=== PATIENT | female | born 1990 | race Caucasian/White ===

== ENCOUNTER 2018-04-07 16:28 | Emergency (ER) | payer OTHER ==
[~2018-04-07] VITALS: Ht 157.5 cm; Wt 45.4 kg
[~2018-04-07 16:28] MED LIST: ACYCLOVIR 800800 MG PO; ALPRAZOLAM 0.0.25 MG PO; AMBIEN 10 MG TA10 MG PO; AMBIEN 5 MG TABL5 M1 PO; ANASPAZ0.125 MG SL; CIPROFLOXACIN500 M1 PO; CIPROFLOXACIN500 M3 PO; COLACE1 EAC1 PO; COLACE100 MG PO; COUMADIN 5 MG TA5 M1 PO; DIFLUCAN150 MG PO; DOXYCYCLINE 10100 MG PO; ENOXAPARIN30 MG/0.3 SUBQ; FLAGYL500 MG PO; FLUCONAZOLE 10100 MG PO; HYDROCODON-ACE1 EAC7 PO; HYDROCODONE-AP1 EAC6 PO; HYDROCORTISONE30 G9; LIALDA1.2 GM PO; LORAZEPAM 0.50.5 MG PO; NOHOMEMEDICATIONS; NORCO 5-325 TA1 EACH; NORCO 5-325 TA1 EACH PO; ONDANSETRON HCL4 M3 PO; OXYCODONE HCL 55 MG PO; PREDNISONE 10 M10 M1 PO; PREDNISONE 20 M20 MG PO; REMERON15 MG PO; TAMSULOSIN HCL0.4 M1 PO; lovenox SUBQ
[2018-04-07 17:08] LABS: URINE BILIRUBIN NEGATIVE (Negative); URINE BLOOD NEGATIVE (Negative); URINE CLARITY SL CLOUDY; URINE COLOR YELLOW; URINE GLUCOSE-RANDOM* NEGATIVE (Negative); URINE KETONES NEGATIVE (Negative); URINE NITRITE-REFLEX NEGATIVE (Negative); URINE PROTEIN (DIPSTICK) TRACE (Negative); URINE SPECIFIC GRAVITY >= 1.030 (1.005-1.035); URINE UROBILINOGEN 0.2 E.U./dl (0.2-1.0)
[2018-04-07 17:08] LABS: HEMATOCRIT 27.2 % (37.0-47.0); HEMOGLOBIN 7.8 gm/dL (12.0-15.0); MCH 17.3 pg (26.0-34.0); MCHC 28.6 g/dL (28.0-37.0); MCV 60.6 fL (80.0-100.0); PLATELET COUNT 248 thou/uL (150-400); RBC 4.48 mil/uL (4.20-5.00); RDW 20.2 % (10.5-14.5); WBC 10.1 thou/uL (4.0-11.0)
[2018-04-07 17:12] LABS: CREATININE 0.7 mg/dL (0.6-1.0); POTASSIUM 3.8 mmol/L (3.5-5.1)
[2018-04-07 17:17] LABS: URINE LEUKOCYTES-REFLEX 1+ (Negative)
[2018-04-07 17:18] LABS: ALBUMIN 4.1 g/dL (3.4-5.0); TOTAL BILIRUBIN 0.9 mg/dL (<0.1-1.0); TOTAL PROTEIN 7.9 g/dL (6.4-8.2)
[2018-04-07 17:20] LABS: AMORPHOUS URATES Many /LPF (None Seen); BACTERIA-REFLEX 1-9 Few /HPF (None Seen); FINE GRANULAR CASTS 0-3 Few /LPF (None Seen); MUCUS None Seen strn/LPF (None Seen); SQUAMOUS >10 Many /LPF (0-3); URINE RBC 0-2 Rare /HPF (0-2); URINE WBC-REFLEX 6-15 Few /HPF (0-5)
[2018-04-07 17:42] LABS: ABSOLUTE NEUTROPHILS 9.3 thou/uL (1.4-8.2)
[2018-04-07 17:43] LABS: ANISOCYTOSIS 1+; HYPOCHROMASIA 3+; MICROCYTES 2+
[2018-04-07 17:44] LABS: OVALOCYTES 1+
[2018-04-07] MEDS ORDERED: IRON325 PO (19:31)
[2018-04-07] MEDS ORDERED: PHENERGAN 25 MG25 M1 PO (19:31)
== END 2018-04-07 19:51 | disposition home or self-care (01) ==
LOC: ER 16:28
PROVIDERS: Physician Assistant
DX: R19.7 Diarrhea, unspecified (principal); R11.2 Nausea with vomiting, unspecified; D64.9 Anemia, unspecified

== ENCOUNTER → 2018-04-11 | Outpatient (CLI) | payer OTHER ==
[~2018-04-11] MED LIST changes: +IRON325 PO; +PHENERGAN 25 MG25 M1 PO
== END ==
LOC: ULTRA 07:22
DX: N83.201 Unspecified ovarian cyst, right side (principal)

== ENCOUNTER → 2019-03-06 | Outpatient (CLI) | payer OTHER ==
[2019-03-06 13:20] VITALS: BP 86/56
[2019-03-06 14:30] VITALS: BP 84/48
--- NOTE | 2019-03-06 14:45 | NUR ---
HERE FOR 1ST OF 4 IV IRON INFUSIONS FOR IRON DEFICIENCY ANEMIA. REPORTS DOING OK BUT VERY FATIGUED, LOW ON ENERGY. HAS LOST SOME WEIGHT, DR. MART AWARE ACCORDING TO PT. HOPING THIS IRON REPLACEMENT WILL MAKE HER FEEL MUCH BETTER. TEACHING DONE, IRON INFUSED OVER ONE HOUR. PT HAS HX OF HEADACHE AND NAUSEA WITH IRON INFUSIONS. NOTIFIED DR. MART AND HE STATED HE WOULD CALL IN A PRN ORDER FOR ZOFRAN TO HER PHARMACY. ENCOURAGED PT TO KEEP HYDRATED AND TAKE ZOFRAN AND/OR TYLENOL NEEDED. TOLERATED TODAY'S INFUSION WITHOUT INCIDENT, NO S/S REACTION. VSS POST THO BP IS LOW. PT STATES SHE RUNS LOW AND DENIES FEELING SYMPOMATIC. DISMISSED IN STABLE CONDITION. SCHEDULED TO RETURN AGAIN ON SATURDAY.
== END ==
LOC: OPONC 12:58
DX: D50.9 Iron deficiency anemia, unspecified (principal)
CPT/HCPCS: 95000

== ENCOUNTER → 2019-03-09 | Outpatient (CLI) | payer OTHER ==
[2019-03-09 12:50] VITALS: BP 101/54
[2019-03-09 14:20] VITALS: BP 87/48
--- NOTE | 2019-03-09 14:41 | NUR ---
IN FOR #2 OF 4 VENOFER INFUSIONS. STATED HAD CHILLS, FEVER, NAUSEA AFTER 1ST INFUSION ON SATURDAY. TOOK TYLENOL AND ZOFRAN AND FELT BETTER BY THE NEXT MORNING. INFUSED VENOFER OVER 1 HOUR. POST BP DROPPED TO 87/48. PATIENT ASYMPTOMATIC. DENIED DIZZINESS. OBSERVED FOR 20 MINUTES AND THEN DISMISSED IN STABLE CONDITION.
== END ==
LOC: OPONC 01:09
DX: D64.9 Anemia, unspecified (principal)
CPT/HCPCS: 95000

== ENCOUNTER → 2019-03-11 | Outpatient (CLI) | payer OTHER ==
[2019-03-11 09:10] VITALS: BP 87/50
[2019-03-11 10:55] VITALS: BP 81/48
--- NOTE | 2019-03-11 11:00 | NUR ---
PT IN FOR 3RD OF 4 IRON INFUSIONS FOR IRON DEFICIENCY ANEMIA. REPORTS FEVER/CHILLS/DIZZINESS/FATIGUE/SWEATS ABOUT 2 HOURS POST INFUSIONS ON SATURDAY. WENT TO BED TO SLEEP THIS OFF AND AWAKENED FEELING OK IN THE MORNING. DENIES FEVER/CHILLS/SWEATS POST INFUSION ON SATURDAY BUT STILL VERY TIRED AND SLIGHT DIZZINESS. THIS ALSO OCCURED A COUPLE HOURS AFTER LEAVING [facility]. BP LOW TODAY, 87/50, PRIOR TO START. NOTIFIED [place] MORALES WITH DR. MART OF THESE COMPLAINTS/CONCERNS. ORDER RECEIVED TO GIVE FLUIDS WITH THE IRON TODAY. PT AGREEABLE. TOLERATED CONCURRENT ADMINISTRTATION OF FLUIDS AND IRON OVER 1 HOUR TODAY. BP 81/48 POST. PT ASYMPTOMATIC WITH THIS BP OTHER THAN STILL FEELING TIRED. OFFICE STATES PT ALWAYS RUNS LOW BP. PT FEELS OK TO DISCHARGE. PLANS TO GO HOME TO [place]. HAS TYLENOL AND ZOFRAN AT HOME IF NEEDED AND PRETREATED SELF WITH TYLENOL PRIOR TO ARRIVAL TODAY. INSTRUCTED PT TO CALL DR. MART IF BECOMES ILL FEELING AGAIN TODAY. ALSO ASKED PT TO REPORT BACK LATER (TODAY OR TOMORROW) TO LET US KNOW HOW SHE DID. WE HAVE ORDER TO REPEAT FLUIDS AGAIN ON SATURDAY IF NEEDED. PT DISMISSED IN STABLE CONDITION. PLANS TO RETURN AGAIN ON SATURDAY FOR HER FINAL INFUSION.
== END ==
LOC: OPONC 00:27
DX: D50.9 Iron deficiency anemia, unspecified (principal)
CPT/HCPCS: 95000

== ENCOUNTER → 2019-03-13 | Outpatient (CLI) | payer OTHER ==
[2019-03-13 09:05] VITALS: BP 91/39
[2019-03-13 10:50] VITALS: BP 90/49
--- NOTE | 2019-03-13 12:25 | NUR ---
IN FOR #4 VENOFER INFUSION. STATED FELT BETTER SATURDAY AFTER INFUSION. BP 91/39 BEFORE STARTING VENOFER. GAVE 1 LITER NS AND VENOFER OVER 1 HOUR AND TOLERATED WELL. POST VITAL SIGNS 90/49. DENIED DIZZINESS. STATED JUST TIRED ALL THE TIME. PATIENT DID TAKE TYLENOL BEFORE COMING IN TO CLINIC. THIS WAS LAST INFUSION. WILL FOLLOW UP WITH PRIMARY CARE DOCTOR SOON. DISMISSED IN GOOD CONDITION.
== END ==
LOC: OPONC 01:34
DX: D64.9 Anemia, unspecified (principal)
CPT/HCPCS: 95000